=== PATIENT | female | born 1985 | race Caucasian/White ===

== ENCOUNTER 2019-03-25 12:10 | Emergency (ER) | payer OTHER ==
[2019-03-25 13:50] VITALS: BP 131/67
--- NOTE | 2019-03-25 14:56 | UC ---
Back Pain HPI - HPI Summary HPI Summary: 34-year-old woman comes in with a chief complaint of low back pain. Started about 2 weeks ago. Patient's been having recurrent intermittent pelvic pain. 2 weeks ago during her menses she was having pain and she feels her back tightened up at that time. She did have a sudden onset of the pain while bending over. She reports the pains in the upper lumbar area that's been recurrent over the past 10 years. No radiation of pain into the legs. No pain or burning with urination or blood in the urine or abnormal bowel movements at this time. No weakness or numbness or difficulty controlling urine or bowels. Sitting for a long time makes the pain worse. Different movements make the pain worse. She has seen [facility] for her pelvic pain and is being evaluated for endometriosis. She has a pelvic ultrasound scheduled for April 03, 2019 with follow-up with a fuel cell test engineer. Patient's had a rash after taking Flexeril. Muscle relaxers in the past have helped her back. She also took a Xanax once which helped her back. - History of Current Complaint Chief Complaint: UCBackPain Stated Complaint: BACK PAIN Time Seen by Provider: 03/25/19 14:30 Hx Last Menstrual Period: 03/06/19 Pain Intensity: 9 - Allergies/Home Medications Allergies/Adverse Reactions: Allergies Allergy/AdvReac Type Severity Reaction Status Date / Time cyclobenzaprine Allergy Hives Verified 03/25/19 13:50 gluten Allergy gi issues Verified 03/25/19 13:50 PMH/Surg Hx/FS Hx/Imm Hx Previously Healthy: Yes - RECURRENT LOW BACK PAIN Other GI/ History: CHRONIC INTERMITTENT PELVIC PAIN - Surgical History Surgical History: Yes Surgery Procedure, Year, and Place: colonoscopy - Family History Known Family History: Positive: Non-Contributory - Social History Alcohol Use: Occasionally Substance Use Type: None Smoking Status (MU): Never Smoked Tobacco Review of Systems All Other Systems Reviewed And Are Negative: Yes Constitutional: Positive: Negative Skin: Positive: Negative Eyes: Positive: Negative ENT: Positive: Negative Respiratory: Positive: Negative Cardiovascular: Positive: Negative Gastrointestinal: Positive: Abdominal Pain, Other - SEE HPI Genitourinary: Positive: Negative Motor: Positive: Negative Neurovascular: Positive: Negative Musculoskeletal: Positive: Other: - SEE HPI Neurological: Positive: Negative Psychological: Positive: Negative Is Patient Immunocompromised?: No Physical Exam Triage Information Reviewed: Yes Appearance: Well-Appearing, Well-Nourished, Pain Distress - MILD WITH ROM OF LOW BACK Vital Signs: Initial Vital Signs Temp 97.7 F 03/25/19 13:46 Pulse 64 03/25/19 13:46 Resp 16 03/25/19 13:46 BP 131/67 03/25/19 13:46 Pulse Ox 100 03/25/19 13:46 Vital Signs Reviewed: Yes Eye Exam: Normal Eyes: Positive: Conjunctiva Clear Neck: Positive: Supple Respiratory: Positive: Lungs clear, Normal breath sounds, No respiratory distress Cardiovascular: Positive: RRR Abdomen Description: Positive: Other: - Patient is mild tenderness to palpation right lower quadrant left lower quadrant and suprapubically. Patient reports this is been chronic. Bowel Sounds: Positive: Present Musculoskeletal: Positive: Strength Intact, ROM Intact, Other: - Tender to palpation midline upper lumbar spine and into the paraspinous muscles on both sides. Legs have full range of motion normal strength and normal sensation. Neurological: Positive: Alert Psychological: Positive: Age Appropriate Behavior Skin Exam: Normal Back Pain Course/Dx - Course Course Of Treatment: It appears this episode of back pain was either brought on by bending lifting or by her chronic intermittent pelvic pain. By history and exam it does not appear that the back pain is abdominal pain or pelvic pain radiating to the back. She's had many similar episodes of back pain in the past. Patient is undergoing an evaluation for her chronic intermittent pelvic pain at this time. The plan for the back pain is to use naproxen twice a day and over-the- counter lidocaine patches. Patient had a rash after using Flexeril therefore have decided to not use any of the muscle relaxers. Wrote a prescription for Xanax to be used as needed for the back pain. Follow-up either with the primary care doctor or sports medicine. Reevaluate sooner if worse or any questions or concerns. - Differential Dx/Diagnosis Provider Diagnosis: Back pain Discharge ED - Sign-Out/Discharge Documenting (check all that apply): Patient Departure All imaging exams completed and their final reports reviewed: No Studies - Discharge Plan Condition: Stable Disposition: HOME Prescriptions: ALPRAZolam TAB* [Xanax TAB*] 0.5 mg PO TID PRN #15 tab MDD 3 PRN Reason: Pain - Moderate Naproxen Sodium [Naproxen 550 mg tab] 550 mg PO BID PRN #30 tablet PRN Reason: Pain - Moderate Patient Education Materials: Acute Low Back Pain (ED), Lower Back Exercises (ED ) Forms: *Work Release Referrals: [facility] [Outside] [facility] [Provider Group] Additional Instructions: FOLLOW UP WITH SPORTS MEDICINE OR YOUR PRIMARY CARE DOCTOR. USE OVER THE COUNTER LIDOCAINE PATCHES DIRECTED IF HELPFUL. GET REEVALUATED SOONER IF NOT IMPROVED OR WORSE; PAIN, WEAKNESS, NUMBNESS, FEVER , ABDOMINAL/PELVIC PAIN, YOU FEEL ILL, DIFFICULTY CONTROLLING BOWEL OR BLADDER OR ANY QUESTIONS OR CONCERNS. - Billing Disposition and Condition Condition: STABLE Disposition: Home
== END 2019-03-25 15:09 | disposition home or self-care (01) ==
LOC: UCEAST 12:10
DX: M54.5 Low back pain (principal); G89.29 Other chronic pain; Z88.8 Allergy status to other drugs, medicaments and biological substances; Z91.09 Other allergy status, other than to drugs and biological substances
CPT/HCPCS: 81003; 84702; 99202; G0463

== ENCOUNTER 2020-08-13 03:11 | Inpatient (IN) ==
[2020-08-13] MEDS ORDERED: Buffered Lidocaine 1% SYRIN 1 ml INTRADERM ONE (04:44)
[2020-08-13] MEDS ORDERED: Lactated Ringers 1000 ml BAG 1,000 ML IV ONE ×2 (04:44→15:44)
[2020-08-13] MEDS ORDERED: Lactated Ringers 1000 ml BAG 1,000 ML IV SCH ×3 (05:00→19:00)
[2020-08-13 06:12] LABS: Urine Benzodiazepine Screen None Detected (None Detect); Urine Cannabinoids Screen None Detected (None Detect); Urine Opiates Screen None Detected (None Detect)
[2020-08-13 07:32] LABS: ABS Lymphocytes 2.3 10^3/ul (1.0-4.8); ABS Monocytes 0.6 10^3/ul (0-0.8); ABS Neutrophils 7.3 10^3/ul (1.5-7.7); Eosinophil % 0.3 %; Hematocrit 38 % (35-47); Hemoglobin 13.1 g/dL (12.0-16.0); Lymphocyte % 22.8 %; Mean Corpuscular HGB Conc 35 g/dL (31-36); Mean Corpuscular Hemoglobin 31 pg (27-31); Mean Corpuscular Volume 89 fL (80-97); Platelet Count 225 10^3/uL (150-450); Red Blood Count 4.21 10^6 /uL (3.70-4.87); Red Cell Distribution Width 13 % (10-15); White Blood Count 10.3 10^3/uL (3.5-10.8)
[2020-08-13] MEDS ORDERED: OBEPIDURAL 250 ML EPIDURAL ONE (14:24)
[2020-08-13] MEDS ORDERED: Oxytocin in LR 20 UNITS/1,000 ML BAG IVPB SCH ×2 (15:00→19:00)
[2020-08-13] MEDS ORDERED: EPHEDrine (Pressors) 50 MG/ML VIAL IV PUSH PRN ×2 (15:44)
[2020-08-13] MEDS ORDERED: Sodium Citrate/Citric Acid LIQ 15 ML UDC PO PRN (15:44)
[2020-08-13] MEDS ORDERED: Phenylephrine 40 mcg/mL 10mL (400mcg) SYRINGE IV PUSH PRN ×2 (15:44)
[2020-08-13] MEDS ORDERED: OBEPIDURAL 250 ML EPIDURAL SCH (16:00)
[2020-08-13] MEDS ORDERED: Dibucaine 1% OINT 28.35 GM TUBE PR PRN (18:27)
[2020-08-13] MEDS ORDERED: Witch Hazel PAD JAR TOPICAL PRN (18:27)
[2020-08-14] MEDS ORDERED: EPHEDrine (Pressors) 50 MG/ML VIAL ONE (01:09)
[2020-08-14] MEDS ORDERED: Phenylephrine 40 mcg/mL 10mL (400mcg) SYRINGE ONE (01:10)
[2020-08-14 07:08] LABS: ABS Basophils 0.1 10^3/ul (0-0.2); ABS Lymphocytes 2.1 10^3/ul (1.0-4.8); ABS Monocytes 0.6 10^3/ul (0-0.8); ABS Neutrophils 7.9 10^3/ul (1.5-7.7); Eosinophil % 0.4 %; Hematocrit 31 % (35-47); Hemoglobin 10.8 g/dL (12.0-16.0); Lymphocyte % 19.6 %; Mean Corpuscular HGB Conc 35 g/dL (31-36); Mean Corpuscular Hemoglobin 31 pg (27-31); Mean Corpuscular Volume 89 fL (80-97); Mean Platelet Volume 9.8 fL (7.4-10.4); Platelet Count 179 10^3/uL (150-450); Red Blood Count 3.45 10^6 /uL (3.70-4.87); Red Cell Distribution Width 13 % (10-15); White Blood Count 10.7 10^3/uL (3.5-10.8)
[2020-08-14 17:11] VITALS: BP 133/73
== END 2020-08-14 20:14 | disposition home or self-care (01) | DRG 560 ==
LOC: MCHOBOUT 03:11 → MCHOB 04:01
PROVIDERS: ADMIT Midwife; ATTEND Midwife